=== PATIENT | male | born 2005 | race Caucasian/White ===

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

== ENCOUNTER 2024-09-07 14:22 | Emergency (ER) | payer OTHER, MEDICAID ==
[2024-09-07] MEDS: Ibuprofen 200 MG Tab PO PRN (15:00)
== END 2024-09-07 15:33 | disposition home or self-care (01) ==
LOC: VM.ED 14:22
DX: S93.402A Sprain of unspecified ligament of left ankle, initial encounter (principal); E66.9 Obesity, unspecified; Z68.27 Body mass index [BMI] 27.0-27.9, adult; Z79.899 Other long term (current) drug therapy; X50.1XXA Overexertion from prolonged static or awkward postures, initial encounter
CPT/HCPCS: 73600-LT; 99283; A9270-GY